=== PATIENT | female | born 1965 | race Caucasian/White ===

== ENCOUNTER 2019-04-09 19:14 | Emergency (ER) | payer BC ==
[~2019-04-09] VITALS: Ht 165.1 cm; Wt 91.8 kg
[2019-04-09 19:20] VITALS: Ht 165.1 cm; Wt 91.8 kg
[2019-04-09 21:58] VITALS: BP 112/67
== END 2019-04-09 21:58 | disposition home or self-care (01) ==
LOC: ED 19:14
DX: J10.1 Influenza due to other identified influenza virus with other respiratory manifestations (principal); E11.9 Type 2 diabetes mellitus without complications
CPT/HCPCS: 82962; 87804; J2930; J7613; J7644